=== PATIENT | female | born 1975 | race Caucasian/White ===

== ENCOUNTER → 2017-05-06 | Outpatient (CLI) | payer BC ==
--- NOTE | 2017-05-07 10:36 | MM ---
Reason for exam: screening (asymptomatic). Last mammogram was performed 6 years ago. History: Patient is nulliparous. Family history of breast cancer in mother at age 64. Reductions of both breasts, 2016. Took hormonal contraceptives for 4 years. Physical Findings: A clinical breast exam by your physician is recommended on an annual basis and results should be correlated with mammographic findings. MG Screening Mammo w CAD Bilateral CC and MLO view(s) were taken. Prior study comparison: April 29, 2011, bilateral digital screening mammo w/CAD. The breast tissue is heterogeneously dense. This may lower the sensitivity of mammography. 5mm asymmetry 8.6cm from nipple at middle posteerior depth on right breast. Repeat CC for more posterior tissue. ASSESSMENT: Incomplete: need additional imaging evaluation, BI-RAD 0 RECOMMENDATION: Special view mammogram of the right breast. If lesion persists on supplemental views, image directed ultrasound is recommended. [facility] will attempt to contact patient to return for supplemental views and ultrasound if indicated.
== END | disposition home or self-care (01) ==
LOC: RADMAMWWP 11:50
PROVIDERS: ATTEND Internal Medicine
DX: Z12.31 Encounter for screening mammogram for malignant neoplasm of breast (principal)

== ENCOUNTER → 2017-05-11 | Outpatient (CLI) | payer BC ==
--- NOTE | 2017-05-12 06:59 | MM ---
Reason for exam: additional evaluation requested from abnormal screening. Last mammogram was performed less than 1 month ago. History: Patient is nulliparous. Family history of breast cancer in mother at age 64. Reductions of both breasts, 2016. Took hormonal contraceptives for 4 years. Physical Findings: Nurse did not find any significant physical abnormalities on exam. MG Work Up Mamm w CAD RT CC, MLO, and LM view(s) were taken of the right breast. Prior study comparison: May 06, 2017, bilateral MG screening mammo w CAD. April 29, 2011, bilateral digital screening mammo w/CAD. There is no discrete abnormality including area of concern. These results were verbally communicated with the patient and result sheet given to the patient on 05/11/17. ASSESSMENT: Negative, BI-RAD 1 RECOMMENDATION: Return to routine screening mammogram schedule for both breasts.
== END | disposition home or self-care (01) ==
LOC: RADMAMWWP 15:06
PROVIDERS: ATTEND Internal Medicine
DX: R92.8 Other abnormal and inconclusive findings on diagnostic imaging of breast (principal)

== ENCOUNTER → 2018-05-11 | Outpatient (CLI) | payer BC ==
--- NOTE | 2018-05-12 13:48 | MM ---
Reason for exam: screening (asymptomatic). Last mammogram was performed 1 year ago. History: Patient is nulliparous. Family history of breast cancer in mother at age 64. Reductions of both breasts, 2016. Took hormonal contraceptives for 4 years. Physical Findings: A clinical breast exam by your physician is recommended on an annual basis and results should be correlated with mammographic findings. MG 3D Screening Mammo W/Cad Bilateral CC and MLO view(s) were taken. Prior study comparison: May 11, 2017, right breast MG work up mamm w CAD RT. May 06, 2017, bilateral MG screening mammo w CAD. The breast tissue is heterogeneously dense. This may lower the sensitivity of mammography. There are benign appearing round calcifications bilaterally. There is no discrete abnormality. ASSESSMENT: Benign, BI-RAD 2 RECOMMENDATION: Routine screening mammogram of both breasts in 1 year.
== END | disposition home or self-care (01) ==
LOC: RADMAMWWP 07:35
PROVIDERS: ATTEND Internal Medicine
DX: Z12.31 Encounter for screening mammogram for malignant neoplasm of breast (principal)
CPT/HCPCS: 77063; 77067

== ENCOUNTER → 2019-05-17 | Outpatient (CLI) | payer BC ==
--- NOTE | 2019-05-18 14:08 | MM ---
Reason for exam: screening (asymptomatic). Last mammogram was performed 1 year ago. History: Patient is nulliparous. Family history of breast cancer in mother at age 64. Reductions of both breasts, 2016. Took hormonal contraceptives for 4 years. Physical Findings: A clinical breast exam by your physician is recommended on an annual basis and results should be correlated with mammographic findings. MG 3D Screening Mammo W/Cad Bilateral CC and MLO view(s) were taken. Prior study comparison: May 11, 2018, bilateral MG 3d screening mammo w/cad. May 11, 2017, right breast MG work up mamm w CAD RT. The breast tissue is heterogeneously dense. This may lower the sensitivity of mammography. There is a stable right lower outer quadrant 3mm middle depth mass. No suspicious abnormality. ASSESSMENT: Negative, BI-RAD 1 RECOMMENDATION: Routine screening mammogram of both breasts in 1 year.
== END | disposition home or self-care (01) ==
LOC: RADMAMWWP 09:07
PROVIDERS: ATTEND Internal Medicine
DX: Z12.31 Encounter for screening mammogram for malignant neoplasm of breast (principal); Z80.3 Family history of malignant neoplasm of breast
CPT/HCPCS: 77063; 77067

== ENCOUNTER → 2020-08-05 | Outpatient (CLI) | payer BC ==
--- NOTE | 2020-08-06 11:38 | MM ---
Reason for exam: screening (asymptomatic). Last mammogram was performed 1 year and 3 months ago. History: Patient is nulliparous. Family history of breast cancer in mother at age 64. Reductions of both breasts, 2016. Took hormonal contraceptives for 4 years. Physical Findings: A clinical breast exam by your physician is recommended on an annual basis and results should be correlated with mammographic findings. MG 3D Screening Mammo W/Cad Bilateral CC and MLO view(s) were taken. Prior study comparison: May 17, 2019, bilateral MG 3d screening mammo w/cad. May 11, 2018, bilateral MG 3d screening mammo w/cad. There are scattered fibroglandular densities. There are benign appearing round calcifications bilaterally. Asymmetric breast tissue in the right breast, stable. There is no discrete abnormality. ASSESSMENT: Benign, BI-RAD 2 RECOMMENDATION: Routine screening mammogram of both breasts in 1 year.
== END | disposition home or self-care (01) ==
LOC: RADMAMWWP 12:00
PROVIDERS: ATTEND Internal Medicine
DX: Z12.31 Encounter for screening mammogram for malignant neoplasm of breast (principal)
CPT/HCPCS: 77063; 77067

== ENCOUNTER → 2020-12-09 | Outpatient (CLI) | payer BC ==
[2020-12-09 14:26] LABS: African American GFR (CKD) >90 (>60 ml/min/1.73 sqM); Anion Gap 8 mmol/L; Blood Urea Nitrogen 15 mg/dL (7-17); Carbon Dioxide 24 mmol/L (22-30); Chloride 102 mmol/L (98-107); Glucose 89 mg/dL (74-99); Non-African American GFR(CKD) >90 (>60 ml/min/1.73 sqM); Potassium 4.5 mmol/L (3.5-5.1); Sodium 134 mmol/L (137-145)
[2020-12-09 14:42] LABS: Basophils % (A) 0 %; Eosinophils % (A) 2 %; HCT 38.8 % (34.0-46.0); HGB 13.4 gm/dL (11.4-16.0); Lymphocytes % (A) 22 %; MCHC 34.6 g/dL (31.0-37.0); MCV 98.3 fL (80.0-100.0); Mean Platelet Volume 6.9; Monocytes % (A) 5 %; Neutrophils % (A) 70 %; Platelet Count 432 k/uL (150-450); RBC 3.95 m/uL (3.80-5.40); RDW 13.1 % (11.5-15.5); WBC 6.7 k/uL (3.8-10.6)
[2020-12-09 14:43] LABS: Eosinophils # (A) 0.1 k/uL (0-0.7); Lymphocytes # (A) 1.5 k/uL (1.0-4.8); Monocytes # (A) 0.3 k/uL (0-1.0); Neutrophils # (A) 4.7 k/uL (1.3-7.7)
== END | disposition home or self-care (01) ==
LOC: LABPAT 13:23
PROVIDERS: ATTEND Obstetrics & Gynecology Obstetrics
DX: Z01.812 Encounter for preprocedural laboratory examination (principal); N92.6 Irregular menstruation, unspecified; N85.2 Hypertrophy of uterus; D25.9 Leiomyoma of uterus, unspecified
CPT/HCPCS: 80051; 82565; 82947; 84520; 85025; 86850; 86900; 86901; 87086

== ENCOUNTER 2020-12-16 07:24 | Day surgery (SDC) | payer BC ==
[2020-12-09 15:32] VITALS: BMI 34.0
[~2020-12-16 07:24] MED LIST: DEXAMETHASONE SOD PHOSPHATE 4 MG/ML 1 ML VIAL IV ONE; LACTATED RINGERS 1,000 ML IV SCH; LIDOCAINE 1% (10MG/ML) FOR IV START INTRADERMA PRN; ONDANSETRON 4 MG/2 ML VIAL IVP ONE; SCOPOLAMINE 1.5MG/72HR PATCH TRANSDERM ONE
[2020-12-16] MEDS ORDERED: MIDAZOLAM 2 MG/2 ML VIAL IVP ONE (08:34)
[2020-12-16] MEDS ORDERED: GLYCOPYRROLATE 0.2 MG/ML 2 ML VIAL ONE (09:01)
[2020-12-16] MEDS ORDERED: MIDAZOLAM 2 MG/2 ML VIAL ONE (09:01)
[2020-12-16] MEDS ORDERED: LIDOCAINE 1%-EPI 1:100,000 20 ML VIAL ONE (09:01)
[2020-12-16] MEDS ORDERED: ROCURONIUM 10 MG/ML (5 ML VIAL) IV ONE (09:01)
[2020-12-16] MEDS ORDERED: ROPIVACAINE 5 MG/ML 30 ML VIAL ONE (09:01)
[2020-12-16] MEDS ORDERED: SUCCINYLCHOLINE CHLORIDE 100 MG/5 ML SYR IV ONE (09:01)
[2020-12-16] MEDS ORDERED: fentaNYL (PF) 50 MCG/ML 2 ML AMP ONE (09:01)
[2020-12-16] MEDS ORDERED: NEOSTIGMINE 1 MG/ML 10 ML VIAL ONE (09:01)
[2020-12-16] MEDS ORDERED: LIDOCAINE 1% INJ 10MG/ML (20 ML MDV) ONE (09:01)
[2020-12-16] MEDS ORDERED: PROPOFOL 10 MG/ML 20 ML VIAL IV ONE (09:01)
[2020-12-16] MEDS ORDERED: BUPIVACAINE (PF) 0.25% 30 ML VIAL SQ ONE ×2 (09:24)
[2020-12-16] MEDS ORDERED: LACTATED RINGERS 1,000 ML IV ONE (10:18)
[2020-12-16] MEDS ORDERED: Acetaminophen-Codeine 300-30mg TAB PO PRN (11:08)
[2020-12-16] MEDS ORDERED: ACETAMINOPHEN IV (For NPO) 1,000 MG in EMPTY BAG 1 BAG IVPB ONE (11:08)
[2020-12-16 11:28] VITALS: RESP 16
--- NOTE | 2020-12-16 11:30 | P.ANPRN ---
Procedure Note - Anesthesia - Nerve Block Performed Bilateral Erector Spinae Single Time Out Performed: Yes Date of Procedure: 12/16/20 Procedure Start Time: :33 Procedure Stop Time: 08:38 Location of Patient: PreOp Indication: Acute Post-Operative Pain, Requested by Surgeon Sedation Type: Sedate with meaningful contact maintained Preparation: Sterile Prep Position: Prone Needle Types: Pajunk Needle Gauge: 21 Ultrasound used to visualize needle placement: Yes Ultrasound used to observe medication spread: Yes Blood Aspirated: No Pain Paresthesia on Injection Noted: No Resistance on Injection: Normal Image Stored and Saved: Yes Events: Uneventful and Well Tolerated (ropi .5% 15cc plus xylo 1% with epi 15cc at l3 bilaterally)
--- NOTE | 2020-12-16 11:37 | P.OP ---
Date of Procedure: 12/16/20 Preoperative Diagnosis: Enlarged uterus, uterine fibroids, irregular menses Postoperative Diagnosis: Same Procedure(s) Performed: Robotic-assisted vaginal hysterectomy, bilateral salpingectomy, diagnostic cystoscopy, lysis of adhesions Anesthesia: ABNER Surgeon: Ale Infante Scrap Breaker #1: Ramakrishna De Leon Estimated Blood Loss (ml): 100 Urine output (ml): 300 Pathology: other (Uterus cervix, uterine fibroids) Condition: stable Disposition: PACU Indications for Procedure: This 45-year-old 0 with known uterine fibroids, enlarged uterus. Patient with complaints of irregular menstrual cycles in addition. Patient was placed on Loestrin with minimal relief of her symptoms, she desires definitive treatment with hysterectomy, ovarian conservation. Operative Findings: Enlarged uterus with multiple fibroids. Pedunculated fundal fibroid, posterior pedunculated fibroid with a large base stalk toward the lower uterine segment. In addition a subserosal fibroid appreciated in the fundal portion of the uterus. Bilateral ovaries appeared normal in nature. Normal-appearing appendix was visualized during the procedure. During diagnostic cystoscopy bladder bubble and intact bladder mucosa was appreciated both ureteral orifices were spilling clear yellow urine. Description of Procedure: Patient was taken back to the operating suite where general anesthesia was then taken without difficulty by the anesthesia department. She was then prepped and draped in the normal sterile fashion in the dorsal lithotomy position. A latex free catheter was then placed under sterile technique. Weighted speculum was placed in the posterior vaginal vault the anterior lip of the cervix is visualized and grasped with a single-tooth tenaculum. The endocervical canal was then dilated. A [employer] uterine manipulator was advanced into the uterus as a means to manipulate the uterus throughout the procedure the balloon was insufflated with approximately 10 mL of air, and the cervical cap was placed snugly against the cervix. All instruments were then removed from the patient's vaginal vault. Attention was then turned to the patient's abdomen where approximately 2 finger breaths above the umbilicus a small skin incision is made. Through this incision the trocar with the laparoscope and placed was placed through the skin incision and toward the peritoneum under direct visualization. Once placement is confirmed insufflation was allowed to occur. Approximately 3 L of gas were used to obtain pneumoperitoneum. At this time the additional port sites are placed these are 10 cm lateral to the midline port and 3 cm inferior. These are placed under direct visualization and are 8 mm operative ports. In the left upper quadrant a 12 mm trocar and sleeve is placed under direct visualization. At this time the da Jem robot was docked in the usual fashion. The operative arms are then placed in the right operative arm as the monopolar scissors and the left operative arm as the bipolar forceps. At this time the left fallopian tube was grasped coagulated and transected. This continued toward the uterine ovarian which was coagulated distally and proximal plane divided. The round ligament was then coagulated distally and proximally and divided. Hemostasis was appreciated throughout. The bladder flap from the left was then created using sharp and blunt dissection. The ascending branch the uterine artery was visualized coagulated and transected. Attention was then turned the patient's right adnexa where the right fallopian tube was then coagulated and transected. This continued through to the uterine ovarian ligament which was coagulated distally and proximally and divided. The round ligament was then visualized coagulated distally and proximally divided. The bladder flap from the right was then created using sharp and blunt dissection. At this time visualization was slightly impeded secondary to the posterior pedunculated fibroid this fibroid was then transected and placed in an Endo Catch bag out of the operating field. The ascending branch of the uterine artery from the right had been coagulated and transected with good hemostasis p rior to the transection of the posterior fibroid. At this time a Ray-Floyd was placed into the abdomen as a means to dissect the bladder away from the operating field even further. This was then removed. At this time the only remaining attachment was a vaginal attachment therefore colpotomy incision was made and circumference of fashion and the uterus fundal fibroid bilateral fallopian tubes were delivered through the vaginal cuff. The Endo Catch bag was then placed through the vaginal cuff. Hemostasis was appreciated of the vaginal cuff. The vaginal cuff was then closed with 0 Vicryl. Proximally 5 [id number] sutures were used to obtain hemostasis. The pelvis was then copiously irrigated hemostasis was appreciated. Surgicel powder was placed along the edges of the vaginal cuff. Ovarian pedicles were inspected and found to be hemostatic. At this time all instruments removed from the patient's abdomen the da Jem was undocked without difficulty. Attention was then turned the patient's Bob catheter which was removed without difficulty noted clear yellow urine was visualized. The cystoscope was then performed. The cystoscope was placed through the urethra and toward the bladder bladder bubble was appreciated bilateral ureteral orifices were noted to be spilling clear yellow urine. The cystoscope was withdrawn removed. The Bob catheter was then replaced. The vaginal vault was then cleared of any remaining irrigation, or residual blood. On inspection the patient's vaginal vault a small superficial sidewall laceration was appreciated this was repaired with 3-0 Rapide in a running fashion. In addition a small hymenal ring laceration was appreciated and repaired with a [id number] suture of 3-0 Rapide. Both of these lacerations appeared hemostatic. All counts were noted to be correct 2 at the end of the procedure. Patient tolerated procedure well and was taken the recovery room awake in stable condition.
[2020-12-16] MEDS: HYDROmorphone 0.5 MG/0.5 ML SYRINGE IVP PRN ×2 (11:49→13:31)
[2020-12-16] MEDS: IBUPROFEN 600 MG TAB PO PRN ×2 (13:33→19:58)
[2020-12-16] MEDS: Acetaminophen-Codeine 300-30mg TAB PO PRN ×2 (17:15→23:19)
[2020-12-16] MEDS: SENNOSIDES-DOCUSATE SODIUM 1 EACH TAB PO SCH (23:02)
[2020-12-16 23:31] VITALS: TEMP 98.6
[2020-12-17] MEDS: IBUPROFEN 600 MG TAB PO PRN ×2 (02:46→09:02)
[2020-12-17] MEDS: Acetaminophen-Codeine 300-30mg TAB PO PRN ×2 (05:25→10:40)
[2020-12-17] MEDS: SIMETHICONE 80 MG CHEWABLE PO PRN ×2 (05:26→09:02)
--- NOTE | 2020-12-17 08:26 | P.DS ---
Providers Date of admission: 12/16/2020 Expected date of discharge: 12/17/20 Attending physician: Ale Infante Primary care physician: Ruby Haddad MD - Discharge Diagnosis(es) (1) Uterine fibroid Current Visit: Yes Status: Acute (2) Enlarged uterus Current Visit: Yes Status: Acute (3) DUB (dysfunctional uterine bleeding) Current Visit: Yes Status: Acute Hospital Course: This is a 45-year-old 0 non patient that presented to the hospital yesterday for scheduled robotic cyst vaginal hysterectomy. Patient had been struggling with known uterine fibroids. Patient had an ultrasound revealing 2 uterine fibroids one fundal around 5 cm 1 posterior similar in size. Patient had noted dysfunctional uterine bleeding in addition. Patient wished definitive therapy given her enlarged uterus with uterine fibroids. Patient was taken to the operating suite for scheduled robotic cyst vaginal hysterectomy. Patient had been counseled on risks including but not limited to infection, bleeding, damage to bladder, bowel, ureteric injury given size of the uterus. Patient stated understanding was taken back to the operating suite. Robotic- assisted vaginal hysterectomy was completed without difficulty for further details on the procedure please see the dictated operative report. Patient's postoperative course is been uneventful. On this postoperative day #1 she is ambulating and voiding without difficulty. She is tolerating a regular diet without nausea or vomiting. Her pain is controlled with oral ibuprofen, Tylenol No. 3. She is minimal vaginal bleeding. She states she feels ready for discharge home. Patient Condition at Discharge: Good Plan - Discharge Summary Discharge Rx Participant: Yes New Discharge Prescriptions: No Action ALPRAZolam [Xanax] 0.25 mg PO DAILY PRN PRN Reason: Anxiety Lo-Loestrin 1 tab PO 1829 Escitalopram [Lexapro] 10 mg PO QAM Ergocalciferol (Vitamin D2) [Vitamin D2 (50,000 Iu)] 1,250 mcg PO MO Discharge Medication List ALPRAZolam [Xanax] 0.25 mg PO DAILY PRN 12/09/20 [History] Ergocalciferol (Vitamin D2) [Vitamin D2 (50,000 Iu)] 1,250 mcg PO MO 12/09/20 [History] Escitalopram [Lexapro] 10 mg PO QAM 12/09/20 [History] Lo-Loestrin 1 tab PO 0 12/09/20 [History] Follow up Appointment(s)/Referral(s): Ale Infante DO [Doctor of Osteopathic Medicine] - 2 Weeks Patient Instructions/Handouts: Laparoscopic Hysterectomy (DC), Laparoscopic Hysterectomy (GEN) Activity/Diet/Wound Care/Special Instructions: Patient is counseled on discharge instructions. She is counseled on removal of Tegaderm/2 x 2's. She can take 24-48 hours after procedure in the shower. She is counseled that she may expect vaginal bleeding up to 6 weeks post procedure. Prescriptions are given to the patient for Tylenol No. 3. She is to use [id number] ibuprofen as needed for discomfort in addition. Patient is to call the office with any concerns prior to her postoperative appointment in 2 weeks. Discharge Disposition: HOME SELF-CARE
[2020-12-17 08:41] LABS: Basophils % (A) 0 %; Eosinophils # (A) 0.1 k/uL (0-0.7); Eosinophils % (A) 1 %; HCT 39.5 % (34.0-46.0); HGB 13.6 gm/dL (11.4-16.0); Lymphocytes # (A) 1.5 k/uL (1.0-4.8); Lymphocytes % (A) 15 %; MCH 34.3 pg (25.0-35.0); MCHC 34.5 g/dL (31.0-37.0); MCV 99.3 fL (80.0-100.0); Mean Platelet Volume 7.2; Monocytes # (A) 0.4 k/uL (0-1.0); Monocytes % (A) 4 %; Neutrophils # (A) 7.7 k/uL (1.3-7.7); Neutrophils % (A) 78 %; Platelet Count 377 k/uL (150-450); RBC 3.97 m/uL (3.80-5.40); WBC 9.8 k/uL (3.8-10.6)
[2020-12-17] MEDS ORDERED: ESCITALOPRAM 10 MG TAB PO SCH (09:00)
[2020-12-17] MEDS: SENNOSIDES-DOCUSATE SODIUM 1 EACH TAB PO SCH (09:03)
[2020-12-17 09:08] VITALS: BP 113/74; PULSE 81
== END 2020-12-17 10:55 | disposition home or self-care (01) ==
LOC: OR 07:24 → 4FBP 11:16 → OR 12-17 10:55
PROVIDERS: ATTEND Obstetrics & Gynecology Obstetrics
DX: N88.8 Other specified noninflammatory disorders of cervix uteri (principal); D25.9 Leiomyoma of uterus, unspecified; N93.8 Other specified abnormal uterine and vaginal bleeding; F41.9 Anxiety disorder, unspecified; F32.9 Major depressive disorder, single episode, unspecified; Z79.899 Other long term (current) drug therapy; Z88.0 Allergy status to penicillin; Z20.822 Contact with and (suspected) exposure to COVID-19
CPT/HCPCS: 58552; S2900; 64999; 76942; 81025; 85025; 86850; 86900; 86901; 87635; 88307

== ENCOUNTER → 2021-12-04 | Outpatient (CLI) | payer BC ==
--- NOTE | 2021-12-04 09:52 | USB ---
Reason for exam: additional evaluation requested from abnormal screening. History: Patient is nulliparous. Family history of breast cancer in mother at age 64. Reductions of both breasts, 2016. Took hormonal contraceptives for 4 years. Physical Findings: A clinical breast exam by your physician is recommended on an annual basis and results should be correlated with mammographic findings. US Breast Workup Limited RT Right limited breast ultrasound including focal area of concern, retroareolar and axilla demonstrates a 0.8 x 0.6 x 0.5cm hypoechoic, circumscribed lesion at 9 o'clock, 12cm from nipple. Unclear if this represents a node, 6 month follow up. 1.6 x 0.9cm axillary node. Cortex borderline thickened, probably reactice, at 3.6mm, 6 month follow up. Results were given to the patient verbally at the time of the exam. ASSESSMENT: Probably benign, BI-RAD 3 RECOMMENDATION: Follow-up diagnostic mammogram and ultrasound of the right breast in 6 months.
== END | disposition home or self-care (01) ==
LOC: RADUSWWP 08:24
PROVIDERS: ATTEND Family Medicine
DX: R92.8 Other abnormal and inconclusive findings on diagnostic imaging of breast (principal)

== ENCOUNTER → 2022-11-19 | Outpatient (CLI) | payer BC ==
--- NOTE | 2022-11-19 09:39 | MM ---
Reason for Exam: Clinical finding. Last screening mammogram was performed 11 month(s) ago. Patient History: Menarche at age 13. Patient has no children. Hysterectomy at age 45. Patient used Hormonal Contraceptives for 4 years. 2016, Bilateral Reduction. Mother had breast cancer, age 64. Risk Values: Daisy 5 year model risk: 1.7%. NCI Lifetime model risk: 17.8%. Tissue Density: There are scattered fibroglandular densities. Findings: Analyzed By CAD. No new suspicious masses, calcifications or distortions. Overall Assessment: Incomplete: need additional imaging evaluation, BI-RAD 0 Management: Diagnostic Breast Ultrasound of both breasts. A clinical breast exam by your physician is recommended on an annual basis and results should be correlated with mammographic findings. This exam should not preclude additional follow-up of suspicious palpable abnormalities. Results were given to the patient verbally at the time of exam. Electronically signed and approved by: Gonsalo Manzo DO
--- NOTE | 2022-11-19 09:42 | USB ---
Reason for Exam: Clinical finding. Patient History: Menarche at age 13. Patient has no children. Hysterectomy at age 45. Patient used Hormonal Contraceptives for 4 years. 2016, Bilateral Reduction. Mother had breast cancer, age 64. Risk Values: Daisy 5 year model risk: 1.7%. NCI Lifetime model risk: 17.8%. Technique: Method: Whole Breast Handheld. Prior Study Comparison: 05/17/2019 Bilateral Screening Mammogram, [facility]. 08/05/2020 Bilateral Screening Mammogram, [facility]. 11/25/2021 Bilateral Screening Mammogram, [facility]. Findings: The whole breast of both breasts, the axilla of both breasts and the retroareolar of both breasts were scanned. Imaged: Ultrasound imaging of: All 4 quadrants, the retroareolar region and axilla. Additional imaging of the area of patient's pain bilaterally. No evidence for organizing fluid collection or mass. Overall Assessment: Negative, BI-RAD 1 Management: Screening Mammogram of both breasts. A clinical breast exam by your physician is recommended on an annual basis and results should be correlated with mammographic findings. This exam should not preclude additional follow-up of suspicious palpable abnormalities. Results were given to the patient verbally at the time of exam. Electronically signed and approved by: Gonsalo Manzo DO
== END | disposition home or self-care (01) ==
LOC: RADMAMWWP 08:16
PROVIDERS: ATTEND Family Medicine
DX: N63.10 Unspecified lump in the right breast, unspecified quadrant (principal); R92.8 Other abnormal and inconclusive findings on diagnostic imaging of breast; Z80.3 Family history of malignant neoplasm of breast
CPT/HCPCS: 77062; 77066

== ENCOUNTER → 2024-01-13 | Outpatient (CLI) | payer BC ==
--- NOTE | 2024-01-19 11:53 | MM ---
Reason for Exam: Screening (asymptomatic). Last mammogram was performed 1 year(s) and 2 month(s) ago. Patient History: Menarche at age 13. Patient has no children. Hysterectomy at age 45. Patient used Hormonal Contraceptives for 4 years. 2016, Bilateral Reduction. Mother had breast cancer, age 64. Risk Values: Daisy 5 year model risk: 1.8%. NCI Lifetime model risk: 17.3%. Prior Study Comparison: 08/05/2020 Bilateral Screening Mammogram, [facility]. 11/25/2021 Bilateral Screening Mammogram, [facility]. 11/19/2022 Bilateral MG 3D diag mammo w/cad JEREMY, [facility]. Tissue Density: There are scattered areas of fibroglandular density. Findings: Analyzed By CAD. No suspicious grouped calcifications. There is increasing size of nodularity in the posterior upper right breast. Recommend ultrasound. Asymmetric density outer margin right breast stable. Benign calcifications. Overall Assessment: Incomplete: need additional imaging evaluation, BI-RAD 0 Management: Diagnostic Breast Ultrasound of the right breast. . Patient should continue monthly self-breast exams. A clinical breast exam by your physician is recommended on an annual basis. This exam should not preclude additional follow-up of suspicious palpable abnormalities. Note on Daisy scores and lifetime risk: 1. A Daisy score greater than 3% is considered moderate risk. If this is the case, consider specialist referral to assess eligibility for a risk reducing agent. 2. If overall lifetime risk for the development of breast cancer is 20% or higher, the patient may qualify for future screening with alternating mammogram and breast MRI. Electronically signed and approved by: Edin Kim M.D. Radiologis
== END | disposition home or self-care (01) ==
LOC: RADMAMWWP 11:28
PROVIDERS: ATTEND Internal Medicine Geriatric Medicine
DX: Z12.31 Encounter for screening mammogram for malignant neoplasm of breast (principal); Z80.3 Family history of malignant neoplasm of breast
CPT/HCPCS: 77067

== ENCOUNTER → 2024-01-25 | Outpatient (CLI) | payer BC ==
--- NOTE | 2024-01-25 10:02 | USB ---
Reason for Exam: Additional evaluation requested from abnormal screening. Patient History: Menarche at age 13. Patient has no children. Hysterectomy at age 45. Patient used Hormonal Contraceptives for 4 years. 2016, Bilateral Reduction. Mother had breast cancer, age 64. Risk Values: Daisy 5 year model risk: 1.8%. NCI Lifetime model risk: 17.3%. Technique: Method: Targeted. Doppler: Color. Patient Position: Supine. Prior Study Comparison: 11/25/2021 Bilateral Screening Mammogram, [facility]. 11/19/2022 Bilateral MG 3D diag mammo w/cad JEREMY, [facility]. 11/19/2022 Bilateral US breast BILAT, [facility]. 01/13/2024 Bilateral MG screening mammo w CAD, [facility]. Findings: The upper outer quadrant of the right breast, the axilla of the right breast and the retroareolar of the right breast were scanned. Targeted ultrasound upper outer quadrant right breast including scanning of the subareolar region and axilla. Focal dense patch of tissue is present at the 9:00 position, 10 cm from the nipple. Additional patch of tissue at the 11:00 position, 15 cm from the nipple. Otherwise, no solid or cystic lesion or axillary lymphadenopathy. Mammographic findings likely represent a low axillary lymph node not always pulled into the field of view, only slightly larger now compared to when it was seen back in 2021. Overall Assessment: Probably benign, BI-RAD 3 Management: Diagnostic Mammogram of the right breast in 6 months. A clinical breast exam by your physician is recommended on an annual basis and results should be correlated with mammographic findings. This exam should not preclude additional follow-up of suspicious palpable abnormalities. Results were given to the patient verbally at the time of exam. Electronically signed and approved by: Fazal Tripp M.D. Radiologist
== END | disposition home or self-care (01) ==
LOC: RADUSWWP 09:26
PROVIDERS: ATTEND Internal Medicine Geriatric Medicine
DX: R92.8 Other abnormal and inconclusive findings on diagnostic imaging of breast (principal); Z80.3 Family history of malignant neoplasm of breast

== ENCOUNTER → 2024-10-12 | Outpatient (CLI) | payer BC ==
--- NOTE | 2024-10-16 09:49 | MM ---
Reason for Exam: Follow-up at short interval from prior study. Last screening mammogram was performed 9 month(s) ago. Patient History: Menarche at age 13. Patient has no children. Hysterectomy at age 45. Patient used Hormonal Contraceptives for 4 years. 2016, Bilateral Reduction. Mother had breast cancer, age 64. Last menstrual period: Risk Values: Daisy 5 year model risk: 1.8%. NCI Lifetime model risk: 17.3%. Tissue Density: Right: There are scattered areas of fibroglandular density. Findings: Analyzed By CAD. 9 mm nodularity far posterior upper aspect of the right breast remains unchanged for 6 months. Not seen on the 2023 exam. Suspect a low axillary tail lymph node not always pulled into the [id number]. One additional short interval follow-up recommended to show at least one-year stability. Otherwise, no significant change. Overall Assessment: Probably benign, BI-RAD 3 Management: Diagnostic Mammogram of both breasts in 3 months. Total one-year follow-up right breast and annual exam of the left breast. Results were given to the patient verbally at the time of exam. Patient should continue monthly self-breast exams. A clinical breast exam by your physician is recommended on an annual basis. This exam should not preclude additional follow-up of suspicious palpable abnormalities. Note on Daisy scores and lifetime risk: 1. A Daisy score greater than 3% is considered moderate risk. If this is the case, consider specialist referral to assess eligibility for a risk reducing agent. 2. If overall lifetime risk for the development of breast cancer is 20% or higher, the patient may qualify for future screening with alternating mammogram and breast MRI. [facility], , 10/12/2024 11:09 AM. Electronically signed and approved by: Fazal Tripp M.D. Radiologist
== END | disposition home or self-care (01) ==
LOC: RADMAMWWP 10:45
PROVIDERS: ATTEND Internal Medicine Geriatric Medicine
DX: R92.2 Inconclusive mammogram (principal); R92.321 Mammographic fibroglandular density, right breast; Z80.3 Family history of malignant neoplasm of breast
CPT/HCPCS: 77061; 77065